=== PATIENT | male | born 1965 | race Caucasian/White ===

== ENCOUNTER 2017-08-01 14:42 | Outpatient (CLI) | payer BC ==
--- NOTE | 2017-08-01 15:06 | RAD ---
RADIOGRAPH RIGHT HAND THREE VIEWS: History: 52-year-old male with right hand pain. Comparison: None. FINDINGS: There is diffuse soft tissue swelling. No fracture or dislocation. No periosteal elevation or destru ctive osseous lesion. 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 IMPRESSION: 1. Soft tissue swelling. 2. No fracture or bone destruction. POS: MARCELA
== END 2017-08-01 14:43 | disposition home or self-care (01) ==
LOC: RAD-FRANK 14:42
PROVIDERS: ATTEND Nurse Practitioner Family
DX: M79.641 Pain in right hand (principal); M79.89 Other specified soft tissue disorders

== ENCOUNTER 2018-06-25 21:57 | Emergency (ER) | payer BC, SELFPAY ==
--- NOTE | 2018-06-25 22:45 | RAD ---
PORTABLE AP CHEST X-RAY 06/25/18 HISTORY: Dizziness and diaphoresis. Chest pain. COMPARISON: 07/02/04. FINDINGS: The cardiac silhouette is magnified by projection but is at the upper limits of normal in size. Pulmo nary vasculature is within normal limits. The right lateral costophrenic angle is excluded from view. Lungs otherwise appear clear. No other interval change. IMPRESSION: Exclusion of the right lateral costophrenic angle, but there is otherwise no acute cardiopulmonary pr ocess. POS: MODE
[2018-06-25 23:07] LABS: #Eosinphils 0.1 thou/uL (0.0-0.7); #Monocytes 0.4 thou/uL (0.11-0.59); #Neutrophils 9.8 thou/uL (1.40-6.50); %Basophils 0.4 % (0.0-1.0); %Eosinophils 1.3 % (0.0-10.0); %Lymphocytes 8.4 % (21.0-51.0); %Monocytes 3.8 % (0.0-10.0); %Neutrophils 86.1 % (42.0-75.0); Mean Corpuscular HGB CONC 33.8 g/dL (32.0-36.0); Mean Corpuscular Hemoglobin 30.1 pg (27.0-31.0); Mean Platelet Volume 7.4 fL (7.4-10.4); Platelet Count 252 thou/uL (130-400); RBC Distribution Width 12.4 % (11.5-14.5); Red Blood Cell (RBC) Count 4.98 mill/uL (4.70-6.10); White Blood Cell (WBC) Count 11.3 thou/uL (4.8-10.8)
[2018-06-25 23:31] LABS: Troponin I 0.035 ng/mL (< 0.028)
[2018-06-25 23:32] LABS: ALT (SGPT) 43 U/L (8-55); AST (SGOT) 30 U/L (5-34); Albumin 4.2 g/dL (3.5-5.0); Alkaline Phosphatase 56 U/L (40-150); Anion Gap 11 mmol/L (10-20); BUN (Urea Nitrogen) 14 mg/dL (8.4-25.7); Bilirubin, Total 0.4 mg/dL (0.2-1.2); Calc. Creatinine Clearance 0 mL/min (70-130); Carbon Dioxide 23 mmol/L (22-29); Chloride 109 mmol/L (98-107); Estimated GFR-MDRD 70; Glucose 133 mg/dL (70-105); Lipase 27 U/L (8-78); Protein, Total 7.2 g/dL (6.0-8.3); Sodium 139 mmol/L (136-145)
[2018-06-25 23:37] LABS: CKMB 6.7 ng/mL (0-6.6)
== END 2018-06-26 00:01 | disposition left against medical advice (07) ==
LOC: ERS 21:57
DX: I16.1 Hypertensive emergency (principal); R79.89 Other specified abnormal findings of blood chemistry; F17.210 Nicotine dependence, cigarettes, uncomplicated; Z79.899 Other long term (current) drug therapy
CPT/HCPCS: 36415; 71045; 80053; 82553; 83690; 83880; 84484; 85025; 93005